=== PATIENT | female | born 1980 | race African-American/Black ===

== ENCOUNTER 2017-01-27 14:17 | Emergency (ER) | payer MEDICAID ==
[~2017-01-27] VITALS: Ht 165.1 cm; Wt 74.8 kg
[~2017-01-27 14:17] MED LIST: AZITHROMYCIN250 MG ORAL; BENADRYL25 MG ORAL; CLINDAMYCIN HC300 MG ORAL; IBUPROFEN600 MG ORAL; IBUPROFEN600 MG PO; IBUPROFEN800 MG PO; KEFLEX500 MG ORAL; NKM; NORCO 5-325 TA1 EACH ORAL; PEPCID20 MG ORAL; PREDNISONE20 MG ORAL; PROMETHAZINE-C118 M1 ORAL; ROBAXIN-750750 MG PO; VALIUM2 MG PO
[2017-01-27 14:35] VITALS: BP 111/72
[2017-01-27] MEDS ORDERED: TRAMADOL HCL50 MG ORAL (15:29)
[2017-01-27 15:31] VITALS: BP 111/72
--- NOTE | 2017-01-27 21:13 | Emergency Room Report ---
History of Present Illness General Chief Complaint: Pain Source: Patient Present Illness [facility] The patient is a 28-year-old female presenting with left thumb pain. The patient states that she injured that thumb 2 weeks prior while opening the back of her truck at work. The patient states that the thumb over extended. She was initially seen at another facility after the injury but no x-rays were done and the patient states pain has continued. It is now an 8/10 dull ache and does not radiate. She denies previous injury to the thumb. Pain worse with movement. She denies numbness or tingling. She denies any other symptoms including rash, fever, chills Allergies: Coded Allergies: No Known Allergies (Unverified , 06/29/15) Patient History Past Medical History: see triage record Pertinent Family History: none Last Menstrual Period: 01/15/17 Now: No Reviewed Nursing Documentation: PMH: Agreed, PSxH: Agreed Nursing Documentation-PMH Past Medical History: No Stated History Hx Cardiac Problems: No Hx Neurological Problems: No Review of Systems All Other Systems: negative except mentioned in HPI Physical Exam Vital Signs Date Time Temp Pulse Resp B/P Pulse Ox O2 Delivery O2 Flow Rate FiO2 01/27/17 14:32 98.2 89 16 111/72 100 Room Air Sp02 EP Interpretation: reviewed, normal General Appearance: no apparent distress, alert, GCS 15, non-toxic Head: normocephalic, atraumatic Eyes: bilateral eye PERRL, bilateral eye normal inspection ENT: hearing grossly normal, normal pharynx, no angioedema, normal voice Musculoskeletal: normal inspection, decreased range of motion, tender - TTP over the L 1st MCPJ Neurologic: alert, oriented x3, responsive, motor strength/tone normal, sensory intact, speech normal Psychiatric: judgement/insight normal, memory normal, mood/affect normal, no suicidal/homicidal ideation Skin: normal color, no rash, warm/dry, well hydrated Lymphatic: no adenopathy Procedures Splinting Splinting : Consent: Verbal Location: L arm Pre-Made Type: velcro Splint: thumb spica Pre-Proc Neuro Vasc Exam: normal Post-Proc Neuro Vasc Exam: normal Patient Tolerated: Well Complications: None Medical Decision Making PA Attestation Dr. Sanabria is my supervising physician. Patient management was discussed with my supervising physician Diagnostic Impression: Primary Impression: Left thumb sprain Qualified Codes: S63.642A - Sprain of metacarpophalangeal joint of left thumb , initial encounter ER Course The patient is a 28-year-old female presenting with left thumb pain. Ddx considered include but not limited to sprain/strain, fracture, contusion Physical exam: No apparent distress Left arm: There is tenderness to palpation over the base of the left first MCP joint. Limited active range of motion due to pain. No obvious deformity. No edema X-ray of the wrist is unremarkable Thumb spica splint is placed The patient will followup with PMD and possibly workers compensation. RICE instructions given. ER precautions are given Other X-Ray Diagnostic Results Other X-Ray Diagnostic Results : X-Ray Ordered: L wrist Date: January 27, 2017 EP Interpretation: Yes Findings: no fractures, no dislocation, no soft tissue swelling Number of Views: 3 PA Scribe Text I am acting as scribe for my supervising physician. My supervising physician's interpretation of the L wrist xrays are there are no fractures, dislocations or soft tissue swelling. Last Vital Signs Date Time Temp Pulse Resp B/P Pulse Ox O2 Delivery O2 Flow Rate FiO2 01/27/17 15:31 98.2 89 16 111/72 100 Room Air Status: improved Disposition: HOME, SELF-CARE Condition: Improved Scripts Tramadol Hcl* (ULTRAM*) 50 Mg Tablet 50 MG ORAL Q6H Y for For Pain, #10 TAB 0 Refills Prov: SHELBIE BLOCK 01/27/17 Patient Instructions: Thumb Sprain Additional Instructions: I discussed my findings with the patient. All questions and concerns have been answered. Treatment and medication compliance have been addressed. I advised the patient that they need to follow up with PMD in 3-5 days. Return to ED if pain remains or worsens, numbness or tingling occurs, new rash is noticed, fever is noticed, or if needed for any reason. Patient verbalized understanding of discharge instructions. SHELBIE BLOCK January 27, 2017 21:13
--- NOTE | 2017-01-30 08:49 | Diagnostic Imaging Report ---
Indications: Left wrist pain Technique: 3 views left wrist Findings: Comparison: None. No fracture, dislocation, lytic destruction, periosteal reaction, surrounding soft tissue swelling, or other acute changes are demonstrated. No deformity, alignment abnormality, arthritic change, soft tissue calcification, or other chronic changes are demonstrated. IMPRESSION: Negative left wrist series.
== END 2017-01-27 15:41 | disposition home or self-care (01) ==
LOC: EMR 15:04
DX: S63.602A Unspecified sprain of left thumb, initial encounter (principal); X58.XXXA Exposure to other specified factors, initial encounter; Y93.9 Activity, unspecified; Y99.9 Unspecified external cause status
CPT/HCPCS: 29260; 29280; 99283

== ENCOUNTER 2017-04-02 21:10 | Emergency (ER) | payer MEDICAID ==
[~2017-04-02] VITALS: Ht 167.6 cm; Wt 59.0 kg
[~2017-04-02 21:10] MED LIST changes: +TRAMADOL HCL50 MG ORAL
[2017-04-02] MEDS ORDERED: TYLENOL EXTRA500 MG ORAL (22:09)
[2017-04-02] MEDS ORDERED: Bacitracin Oint UD TOPIC ONE (22:15)
[2017-04-02 22:18] VITALS: BP 108/76
--- NOTE | 2017-04-03 00:56 | Emergency Room Report ---
History of Present Illness General Chief Complaint: Lower Extremity Injury Source: Patient Present Illness HPI 36-year-old female presents ED complaining of right foot pain. States that tonight a drawer front fell from the counter height in hit her in the foot. Denies any other injuries. Notes pain and swelling to the right foot. 02/25. Throbbing. Nonradiating. Unable to bear weight. No other aggravating relieving factors. Denies any other associated symptoms. Allergies: Coded Allergies: No Known Allergies (Unverified , 06/29/15) Patient History Past Medical History: none Past Surgical History: none Pertinent Family History: none Social History: Denies: alcohol use, drug use, smoking Now: Yes Immunizations: UTD Reviewed Nursing Documentation: PMH: Agreed, PSxH: Agreed Nursing Documentation-PMH Hx Cardiac Problems: No Hx Hypertension: No Hx Pacemaker: No Hx Asthma: No Hx COPD: No Hx Diabetes: No Hx Neurological Problems: No Hx Cerebrovascular Accident: No Hx Seizures: No Review of Systems All Other Systems: negative except mentioned in HPI Physical Exam Vital Signs Date Time Temp Pulse Resp B/P Pulse Ox O2 Delivery O2 Flow Rate FiO2 04/02/17 21:25 98.1 78 16 108/76 98 Room Air Sp02 EP Interpretation: reviewed, normal General Appearance: no apparent distress, alert, GCS 15, non-toxic Head: normocephalic Eyes: bilateral eye PERRL, bilateral eye normal inspection ENT: normal ENT inspection Neck: normal inspection Respiratory: normal inspection Cardiovascular #1: normal inspection Gastrointestinal: normal inspection Rectal: deferred Genitourinary: no CVA tenderness Musculoskeletal: tender - swelling to dorsum R foot. no deformity Neurologic: alert, oriented x3, responsive, motor strength/tone normal, sensory intact, speech normal Psychiatric: normal inspection Skin: normal inspection Lymphatic: normal inspection Procedures Splinting Splinting : Consent: Verbal Pre-Made Type: DENITA wrap - crutches Pre-Proc Neuro Vasc Exam: normal Post-Proc Neuro Vasc Exam: normal Patient Tolerated: Well Complications: None Medical Decision Making Diagnostic Impression: Primary Impression: Foot contusion Qualified Codes: S90.31XA - Contusion of right foot, initial encounter ER Course Hospital Course 36-year-old F presents to ED complaining of R foot pain s/p object fell on foot Differential diagnoses include: Fracture, dislocation, sprain, contusion Clinical course Patient placed on stretcher. After initial history and physical, I ordered xrays of R foot Patient states she is . Patient will be shielded Xrays prelim read shows no acute fracture/dislocation. placed in denita wrap, given crutches Diagnosis - foot contusion Stable and discharged to home with prescription for Tylenol. apply ice, keep elevated. weight bear as tolerated. Followup with PMD. Return to ED if symptoms recur or worsen Other X-Ray Diagnostic Results Other X-Ray Diagnostic Results : X-Ray ordered: R foot # of Views/Limited Vs Complete: 3 View Indication: Pain EP Interpretation: Yes Interpretation: no dislocation, no soft tissue swelling, no fractures Impression: No acute disease Interpreting ER Provider: Electronically signed by Diogo Hollis MD Last Vital Signs Date Time Temp Pulse Resp B/P Pulse Ox O2 Delivery O2 Flow Rate FiO2 04/02/17 22:18 98.1 16 108/76 98 Room Air 04/02/17 21:25 78 Status: improved Disposition: HOME, SELF-CARE Condition: Improved Scripts Acetaminophen* (TYLENOL EXTRA STRENGTH*) 500 Mg Tablet 500 MG ORAL Q8H Y for Prn Headache/Temp > 101, #30 TAB 0 Refills Prov: DIOGO HOLLIS M.D. 04/02/17 Referrals: LO SHORT (PCP) Departure Forms: Return to Work Return to Work Date: Apr 03, 2017 Work Restrictions: No Prolonged Standing Patient Instructions: Foot Contusion DIOGO HOLLIS M.D. Apr 03, 2017 00:56
--- NOTE | 2017-04-03 11:55 | Diagnostic Imaging Report ---
Indication: Pain Comparison: None Findings: 3 views of the right foot were obtained. No acute fractures, malalignment, erosions or periostitis are identified. Bone mineralization is within normal limits. Soft tissues are unremarkable. Impression: Negative examination of the right foot.
== END 2017-04-02 22:18 | disposition home or self-care (01) ==
LOC: EMR 21:39
DX: S90.31XA Contusion of right foot, initial encounter (principal); W20.8XXA Other cause of strike by thrown, projected or falling object, initial encounter; Y92.9 Unspecified place or not applicable
CPT/HCPCS: 29540; 99283

== ENCOUNTER 2017-04-04 15:53 | Emergency (ER) | payer MEDICAID ==
[~2017-04-04] VITALS: Ht 165.1 cm; Wt 74.8 kg
[~2017-04-04 15:53] MED LIST changes: +TYLENOL EXTRA500 MG ORAL
[2017-04-04 16:20] VITALS: BP 118/80
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
[2017-04-04 18:15] VITALS: BP 117/70
--- NOTE | 2017-04-05 13:32 | Diagnostic Imaging Report ---
Indication: TRAUMA, pelvic pain, positive test Technique: Transabdominal and transvaginal images Comparison: 03/24/2015 Findings: Uterus measures 5.9 cm in length by 4 cm AP. Within the endometrium there is a tiny fluid collection. Small myometrial fibroids are noted. There is free fluid in the cul-de-sac. Right ovary measures 4.5 cm in length, contains a 2.1 cm hemorrhagic cyst. A second 2.1 cm this is also noted. Left ovary measures 4.4 cm in length. It demonstrates a partially collapsed cyst with low-level internal echoes. No adnexal mass demonstrated. Impression: Tiny fluid collection within the endometrium. Nonspecific in appearance, could represent a gestational sac but this is far from definitive, and no definite intrauterine is demonstrated. Findings could indicate very early , nonviable , or ectopic . Correlation with serial beta hCGs is recommended. Consider followup sonography as indicated Free cul-de-sac fluid, presumably physiologic Bilateral hemorrhagic ovarian cysts or follicles
== END 2017-04-04 18:15 | disposition left against medical advice (07) ==
LOC: EMR 17:07
DX: O26.891 Other specified pregnancy related conditions, first trimester (principal); Z3A.01 Less than 8 weeks gestation of pregnancy; V49.9XXA Car occupant (driver) (passenger) injured in unspecified traffic accident, initial encounter; Y92.410 Unspecified street and highway as the place of occurrence of the external cause
CPT/HCPCS: 36415; 76830; 76856; 81025; 84702; 99283

== ENCOUNTER 2017-09-27 16:22 | Emergency (ER) | payer MEDICAID ==
[~2017-09-27] VITALS: Ht 162.6 cm; Wt 73.9 kg
[2017-09-27 16:45] VITALS: BP 131/74
[2017-09-27] MEDS ORDERED: PROMETHAZINE-C118 M1 ORAL (17:12)
[2017-09-27] MEDS ORDERED: AMOXICILLIN500 MG ORAL (17:12)
[2017-09-27 17:15] VITALS: BP 131/74
--- NOTE | 2017-09-28 12:56 | Emergency Room Report ---
History of Present Illness General Chief Complaint: Flu Like Symptoms Source: Patient Present Illness HPI 37-year-old female presents ED for evaluation. States the last 10 days she's been experiencing bodyaches, cough, chills. Cough is productive with greenish phlegm. Denies fever. Afebrile in triage. Notes body, 5-10, nonradiating. Denies sick contacts or recent travel. States the cough is keeping her up at night. No other aggravating relieving factors. Denies any other associated symptoms Allergies: Coded Allergies: No Known Allergies (Unverified , 06/29/15) Patient History Past Medical History: none Past Surgical History: none Pertinent Family History: none Social History: Denies: smoking, alcohol use, drug use Now: No Immunizations: UTD Reviewed Nursing Documentation: PMH: Agreed, PSxH: Agreed Nursing Documentation-PMH Hx Cardiac Problems: No Hx Hypertension: No Hx Pacemaker: No Hx Asthma: No Hx COPD: No Hx Diabetes: No Hx Neurological Problems: No Hx Cerebrovascular Accident: No Hx Seizures: No Review of Systems All Other Systems: negative except mentioned in HPI Physical Exam Vital Signs Date Time Temp Pulse Resp B/P (MAP) Pulse Ox O2 Delivery O2 Flow Rate FiO2 09/27/17 16:45 99.0 109 20 131/74 98 Room Air 09/27/17 17:15 98 Sp02 EP Interpretation: reviewed, normal General Appearance: no apparent distress, alert, GCS 15, non-toxic Head: normocephalic, atraumatic Eyes: bilateral eye normal inspection, bilateral eye PERRL ENT: hearing grossly normal, normal pharynx, no angioedema, normal voice Neck: full range of motion, supple/symm/no masses Respiratory: chest non-tender, lungs clear, normal breath sounds, speaking full sentences Cardiovascular #1: regular rate, rhythm, no edema Cardiovascular #2: 2+ carotid (R), 2+ carotid (L), 2+ radial (R), 2+ radial (L) , 2+ dorsalis pedis (R), 2+ dorsalis pedis (L) Gastrointestinal: normal bowel sounds, non tender, soft, non-distended, no guarding, no rebound Rectal: deferred Genitourinary: normal inspection, no CVA tenderness Musculoskeletal: back normal, gait/station normal, normal range of motion, non- tender Neurologic: alert, oriented x3, responsive, motor strength/tone normal, sensory intact, speech normal Psychiatric: judgement/insight normal, memory normal, mood/affect normal, no suicidal/homicidal ideation Reflexes: 3+ bicep (R), 3+ bicep (L), 3+ tricep (R), 3+ tricep (L), 3+ knee (R) , 3+ knee (L) Skin: normal color, no rash, warm/dry, well hydrated Lymphatic: no adenopathy Medical Decision Making Diagnostic Impression: Primary Impression: Atypical pneumonia ER Course Hospital Course 37-year-old female presents to ED complaining of cough, bodyaches Differential diagnoses include: URI, pharyngitis, otitis media, asthma Clinical course Patient placed on stretcher. After initial history, physical exam reveals a female in no acute distress. Bilateral TM unremarkable. No pharyngeal erythema. No tonsillar exudates. No lymphadenopathy. lungs clear. abdomen soft. Presentation consistent with atypical pneumonia. We'll prescribe antibiotics and cough medication Diagnosis - atypical pneumonia Stable and discharged home with Rx Amoxicillin, Promethazine/codeine. Instructed to followup with PMD. Return to ED if symptoms recur or worsen Last Vital Signs Date Time Temp Pulse Resp B/P (MAP) Pulse Ox O2 Delivery O2 Flow Rate FiO2 09/27/17 17:15 99.0 20 131/74 98 Room Air 09/27/17 17:15 78 98 Status: improved Disposition: HOME, SELF-CARE Condition: Stable Scripts Codeine/Promethazine Hcl* (PROMETHAZINE-CODEINE SYRUP*) 118 Ml Syrup 5 ML ORAL Q6H Y for For Cough, #118 ML 0 Refills Prov: SARA BHAT M.D. 09/27/17 Amoxicillin* (AMOXIL*) 500 Mg Capsule 500 MG ORAL THREE TIMES A DAY, #21 CAP Prov: SARA BHAT M.D. 09/27/17 Referrals: [facility],REFERRING (PCP) Patient Instructions: Community-Acquired Pneumonia, Adult, [id number] SARA BHAT M.D. Sep 28, 2017 12:56
== END 2017-09-27 17:20 | disposition home or self-care (01) ==
LOC: EMR 17:05
DX: J18.9 Pneumonia, unspecified organism (principal)
CPT/HCPCS: 99283

== ENCOUNTER 2018-01-14 15:42 | Emergency (ER) | payer MEDICAID ==
[~2018-01-14] VITALS: Ht 165.1 cm; Wt 75.3 kg
[~2018-01-14 15:42] MED LIST changes: +AMOXICILLIN500 MG ORAL
[2018-01-14 16:39] LABS: APPEARANCE,URINE SLIGHTLY CLOUDY; BILIRUBIN, URINE NEGATIVE (NEGATIVE); COLOR,URINE AMBER; GLUCOSE, URINE (UA) NEGATIVE (NEGATIVE); KETONES,URINE NEGATIVE (NEGATIVE); LEUKOCYTE ESTERASE ,URINE 1+ (NEGATIVE); NITRITE,URINE POSITIVE (NEGATIVE); PH,URINE 6 (4.5-8.0); PROTEIN,URINE 1+ (NEGATIVE); UROBILINOGEN,URINE NORMAL MG/DL (0.0-1.0)
[2018-01-14 17:38] LABS: EOSINOPHILS % (AUTO) 0.7 % (0.0-3.0); HEMATOCRIT 38.9 % (37.0-47.0); HEMOGLOBIN 12.9 G/DL (12.0-16.0); MEAN CORPUSCULAR VOLUME 97 FL (80-99); MONOCYTES % (AUTO) 6.2 % (1.0-10.0); PLATELET COUNT 275 K/UL (150-450); RED BLOOD COUNT 4.01 M/UL (4.20-5.40); RED CELL DISTRIBUTION WIDTH 11.3 % (11.6-14.8); WHITE BLOOD COUNT 7.9 K/UL (4.8-10.8)
[2018-01-14 18:01] LABS: INR 0.9 (0.9-1.1)
[2018-01-14] MEDS ORDERED: Cephalexin 500mg cap ORAL ONE (18:15)
--- NOTE | 2018-01-14 18:43 | Emergency Room Report ---
History of Present Illness General Chief Complaint: Female Urogenital Problems Source: Patient (SHELBIE BLOCK) Present Illness HPI The patient is a 37-year-old female presenting for mid lower abdominal pain as well as vaginal bleeding. Last normal menstrual period was 12/27/17. She has had light vaginal spotting for the past one week. Abdominal pain described as a 3 out of 10 dull ache and does not radiate. She has had a tubal approximately 20 years prior. She has had 2 medical abortions and 2 miscarriages. She denies other symptoms including nausea, vomiting, fever, chills, back pain (SHELBIE BLOCK) Allergies: Coded Allergies: No Known Allergies (Unverified , 06/29/15) Patient History Past Medical History: see triage record Pertinent Family History: none Last Menstrual Period: 12/27/17 Now: Yes : 6 Para: 2 Reviewed Nursing Documentation: PMH: Agreed; PSxH: Agreed (SHELBIE BLOCK) Nursing Documentation-PMH Past Medical History: No History, Except For Hx Cardiac Problems: No Hx Hypertension: No Hx Pacemaker: No Hx Asthma: No Hx COPD: No Hx Diabetes: No Hx Neurological Problems: No Hx Cerebrovascular Accident: No Hx Seizures: No (SHELBIE BLOCK) Review of Systems All Other Systems: negative except mentioned in HPI (SHELBIE BLOCK) Physical Exam Vital Signs Date Time Temp Pulse Resp B/P (MAP) Pulse Ox O2 Delivery O2 Flow Rate FiO2 01/14/18 15:52 98.2 93 19 123/76 96 Room Air 98.2 Sp02 EP Interpretation: reviewed, normal General Appearance: no apparent distress, alert, GCS 15, non-toxic Head: normocephalic, atraumatic Eyes: bilateral eye normal inspection, bilateral eye PERRL Respiratory: chest non-tender, lungs clear, normal breath sounds, speaking full sentences Cardiovascular #1: regular rate, rhythm, no edema Gastrointestinal: normal bowel sounds, non tender, soft, non-distended, no guarding, no rebound Genitourinary: normal inspection, no CVA tenderness Musculoskeletal: back normal, gait/station normal, normal range of motion, non- tender Neurologic: alert, oriented x3, responsive, motor strength/tone normal, sensory intact, speech normal Psychiatric: judgement/insight normal, memory normal, mood/affect normal, no suicidal/homicidal ideation Skin: normal color, no rash, warm/dry, well hydrated (SHELBIE BLOCK) Medical Decision Making PA Attestation Dr. Voss is my supervising physician. Patient management was discussed with my supervising physician (SHELBIE BLOCK) Diagnostic Impression: Primary Impression: Threatened miscarriage Additional Impression: UTI (urinary tract infection) Qualified Codes: N30.01 - Acute cystitis with hematuria ER Course The patient is a 37-year-old female presenting for mid lower abdominal pain as well as vaginal bleeding Differential diagnoses considered include but not limited to Early , threatened , incomplete , complete , ectopic , hemorrhagic cyst, UTI PE: Afebrile. NAD Abd is soft. Non distended. Non tender. BS normal No CVA tenderness Labs: CBC unremarkable. No leukocytosis BMP unremarkable UA consistent with UTI Beta-hCG 1,442 US not available at this time. Pt will return in 2 days for repeat of beta-hCG She will return sooner if she experiences fever, worsening abd pain, back pain, SOB, or for any other reason SHe is given prescription for Keflex for UTI and will contact her OBGYN Laboratory Tests Test 01/14/18 16:00 01/14/18 17:22 Urine Color Terri Urine Appearance Slightly cloudy Urine pH 6 (4.5-8.0) Urine Specific [place] 1.020 (1.005-1.035) Urine Protein 1+ (NEGATIVE) H Urine Glucose (UA) Negative (NEGATIVE) Urine Ketones Negative (NEGATIVE) Urine Occult Blood 5+ (NEGATIVE) H Urine Nitrite Positive (NEGATIVE) H Urine Bilirubin Negative (NEGATIVE) Urine Ictotest Negative Urine Urobilinogen Normal MG/DL (0.0-1.0) Urine Leukocyte Esterase 1+ (NEGATIVE) H Urine RBC 5-10 /HPF (0 - 2) H Urine WBC 15-20 /HPF (0 - 2) H Urine Squamous Epithelial Cells Moderate /LPF (NONE/OCC) H Urine Bacteria Moderate /HPF (NONE) H Urine HCG, Qualitative Positive (NEGATIVE) White Blood Count 7.9 K/UL (4.8-10.8) Red Blood Count 4.01 M/UL (4.20-5.40) L Hemoglobin 12.9 G/DL (12.0-16.0) Hematocrit 38.9 % (37.0-47.0) Mean Corpuscular Volume 97 FL (80-99) Mean Corpuscular Hemoglobin 32.2 PG (27.0-31.0) H Mean Corpuscular Hemoglobin Concent 33.2 G/DL (32.0-36.0) Red Cell Distribution Width 11.3 % (11.6-14.8) L Platelet Count 275 K/UL (150-450) Mean Platelet Volume 7.0 FL (6.5-10.1) Neutrophils (%) (Auto) 57.0 % (45.0-75.0) Lymphocytes (%) (Auto) 34.0 % (20.0-45.0) Monocytes (%) (Auto) 6.2 % (1.0-10.0) Eosinophils (%) (Auto) 0.7 % (0.0-3.0) Basophils (%) (Auto) 2.0 % (0.0-2.0) Prothrombin Time 9.5 SEC (9.30-11.50) Prothrombin Time INR 0.9 (0.9-1.1) PTT 32 SEC (23-33) Sodium Level 138 MMOL/L (136-145) Potassium Level 3.6 MMOL/L (3.5-5.1) Chloride Level 103 MMOL/L (98-107) Carbon Dioxide Level 24 MMOL/L (21-32) Anion Gap 11 mmol/L (5-15) Blood Urea Nitrogen 14 mg/dL (7-18) Creatinine 0.8 MG/DL (0.55-1.30) Estimate Glomerular Filtration Rate > 60 mL/min (>60) Glucose Level 95 MG/DL (74-106) Calcium Level 9.0 MG/DL (8.5-10.1) Human Chorionic Gonadotropin, Quant 1442 mIU/mL (1-6) H Lab Results Impression CBC unremarkable. No leukocytosis BMP unremarkable UA consistent with UTI Beta-hCG 1,442 (SHELBIE BLOCK.Pam) ER Course Please see above note. Initially plan for ultrasound. Unavailable. Patient examined by me. She denies pain. Ultrasound cancelled. Discussed assessment and treatment plan with patient and sig other. Agree with treatment plan. Patient stable for outpatient observation and treatment. (Adrian Vsos M.D.) Last Vital Signs Date Time Temp Pulse Resp B/P (MAP) Pulse Ox O2 Delivery O2 Flow Rate FiO2 01/14/18 15:52 98.2 93 19 123/76 96 Room Air 98.2 Status: improved (SHELBIE BLOCK P.A.) Disposition: HOME, SELF-CARE Condition: Improved Scripts Cephalexin* (KEFLEX*) 500 Mg Capsule 500 MG ORAL EVERY 12 HOURS, #14 CAP 0 Refills Prov: SHELBIE BLOCK 01/14/18 Referrals: [facility],REFERRING (PCP) SHELBIE BLOCK Jan 14, 2018 18:43 Adrian Voss M.D. January 17, 2018 16:07
[2018-01-14 19:12] VITALS: BP 122/72
[2018-01-14 19:56] LABS: ANION GAP 11 mmol/L (5-15); BLOOD UREA NITROGEN 14 mg/dL (7-18); CARBON DIOXIDE 24 MMOL/L (21-32); CHLORIDE 103 MMOL/L (98-107); CREATININE 0.8 MG/DL (0.55-1.30); POTASSIUM 3.6 MMOL/L (3.5-5.1); SODIUM 138 MMOL/L (136-145)
[2018-01-14] MEDS ORDERED: CEPHALEXIN500 MG ORAL (21:34)
[2018-01-14 22:29] VITALS: BP 128/74
[2018-01-14 22:30] VITALS: BP 128/74
--- NOTE | 2018-01-17 08:25 | Emergency Room Report ---
History of Present Illness General Chief Complaint: Female Urogenital Problems Source: Patient Present Illness Allergies: Coded Allergies: No Known Allergies (Unverified , 06/29/15) Patient History Last Menstrual Period: 12/27/17 : 6 Para: 2 Nursing Documentation-[facility] Past Medical History: No History, Except For Hx Cardiac Problems: No Hx Hypertension: No Hx Pacemaker: No Hx Asthma: No Hx COPD: No Hx Diabetes: No Hx Neurological Problems: No Hx Cerebrovascular Accident: No Hx Seizures: No Physical Exam Vital Signs Date Time Temp Pulse Resp B/P (MAP) Pulse Ox O2 Delivery O2 Flow Rate FiO2 01/14/18 15:52 98.2 93 19 123/76 96 Room Air 98.2 Medical Decision Making Diagnostic Impression: Primary Impression: Threatened miscarriage Patient urine result shows positive for Escherichia coli. It is resistant to Keflex. I called the patient to check up on her and she states that she's not feeling well. Therefore I informed the patient to come back in emergency department for repeat evaluation and possible abdominal ultrasound. Patient is states that she is . And that ultrasound was not performed last time in our emergency department because the ultrasound equipment was not. Patient states that she'll return to emergency department as possible. Last Vital Signs Date Time Temp Pulse Resp B/P (MAP) Pulse Ox O2 Delivery O2 Flow Rate FiO2 01/14/18 22:30 98.2 70 20 128/74 100 Room Air 98.2 Disposition: HOME, SELF-CARE Condition: Improved Scripts Cephalexin* (KEFLEX*) 500 Mg Capsule 500 MG ORAL EVERY 12 HOURS, #14 CAP 0 Refills Prov: SHELBIE BLOCK 01/14/18 Departure Forms: Return to Work Return to Work in (Days): 1 Return to Work Date: Jan 15, 2018 Work Restrictions: No Heavy Lifting, No Prolonged Standing, Desk Work Only Patient Instructions: Threatened Miscarriage Additional Instructions: I discussed my findings with the patient. All questions and concerns have been answered. The patient needs to F/U with her [employer]DER for further evaluation. Return to ER in 2 days for repeat of Beta hcg. Return sooner if you notice other symptoms such as increased pain or fever DELILAH PORTILLO M.D. January 17, 2018 08:25
== END 2018-01-14 22:30 | disposition home or self-care (01) ==
LOC: EMR 16:25
DX: O20.0 Threatened abortion (principal); Z3A.00 Weeks of gestation of pregnancy not specified
CPT/HCPCS: 36415; 80048; 81003; 81025; 84702; 85025; 85610; 85730; 86850; 86900; 86901; 87086; 87181; 99283

== ENCOUNTER 2018-01-17 12:23 | Emergency (ER) | payer MEDICAID ==
[~2018-01-17] VITALS: Ht 165.1 cm; Wt 74.4 kg
[~2018-01-17 12:23] MED LIST changes: +CEPHALEXIN500 MG ORAL
[2018-01-17] MEDS ORDERED: Augmentin 875mg Tab ORAL ONE (12:45)
[2018-01-17 13:39] LABS: BASOPHILS % (AUTO) 2.1 % (0.0-2.0); EOSINOPHILS % (AUTO) 0.7 % (0.0-3.0); HEMATOCRIT 37.6 % (37.0-47.0); HEMOGLOBIN 12.9 G/DL (12.0-16.0); LYMPHOCYTES % (AUTO) 31.5 % (20.0-45.0); MEAN CORPUSCULAR VOLUME 98 FL (80-99); MONOCYTES % (AUTO) 7.3 % (1.0-10.0); NEUTROPHILS % (AUTO) 58.4 % (45.0-75.0); PLATELET COUNT 278 K/UL (150-450); RED BLOOD COUNT 3.84 M/UL (4.20-5.40); RED CELL DISTRIBUTION WIDTH 11.4 % (11.6-14.8); WHITE BLOOD COUNT 6.4 K/UL (4.8-10.8)
[2018-01-17 13:47] LABS: ANION GAP 8 mmol/L (5-15); BLOOD UREA NITROGEN 9 mg/dL (7-18); CALCIUM 9.1 MG/DL (8.5-10.1); CARBON DIOXIDE 28 MMOL/L (21-32); CHLORIDE 103 MMOL/L (98-107); CREATININE 0.7 MG/DL (0.55-1.30); POTASSIUM 3.7 MMOL/L (3.5-5.1); SODIUM 139 MMOL/L (136-145)
[2018-01-17 13:57] LABS: APPEARANCE,URINE CLEAR; BILIRUBIN, URINE NEGATIVE (NEGATIVE); GLUCOSE, URINE (UA) NEGATIVE (NEGATIVE); KETONES,URINE 1+ (NEGATIVE); LEUKOCYTE ESTERASE ,URINE 1+ (NEGATIVE); NITRITE,URINE NEGATIVE (NEGATIVE); PH,URINE 6 (4.5-8.0); PROTEIN,URINE 2+ (NEGATIVE); UROBILINOGEN,URINE 4 MG/DL (0.0-1.0)
[2018-01-17 14:00] LABS: COLOR,URINE YELLOW
--- NOTE | 2018-01-17 14:28 | Diagnostic Imaging Report ---
Indication: Vaginal spotting. Patient . Technique: Grayscale and duplex Doppler imaging of the pelvis performed utilizing a transabdominal scan and endovaginal scan. Comparison: None Findings: There is a tiny cystic focus within the central part of the uterus, nonspecific. There is no yolk sac or pole and the cyst is too small to characterize or date. There is no adnexal mass. There is trace free fluid identified. The ovaries are demonstrated and show dopplerable blood flow. The endometrium is about 13 mm in thickness. The right ovary is 4.1 x 3.8 x 2.4 cm. Left ovary 3.6 x 2.8 x 2.0 cm. There are multiple fibroids noted within the uterus which measures 7.6 x 5.4 x 3.2 cm. IMPRESSION: Nonspecific tiny cystic structure in the central part of the uterus. Considerations include early intrauterine , remnant of spontaneous , nonpregnancy related cyst. Correlation with quantitative beta hCG recommended. Follow-up suggested. Uterine fibroids Unremarkable ovaries
--- NOTE | 2018-01-17 15:29 | Emergency Room Report ---
History of Present Illness General Chief Complaint: Complications Present Illness HPI 37-year-old female presents to the emergency department complaining of continued vaginal bleeding in the mouth that she uses to pantiliners per day 3 weeks. Patient reports positive test. Patient reports previous visit to the emergency department on 429 and was told to return because ultrasound was unavailable at the time. 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 Patient reports he out of 10 in severity pain at the moment however she states she gets intermittent 6 out of 10 in severity lower uterine cramping sensation. Patient states that her last regular menstrual period was November. Patient states that on December 27 she began spotting but it was not like her normal menstruation. Patient reports she is , 3 prior miscarriages, 2 previous C-sections and a D & C. Denies nausea, vomiting, fevers, chills, purulent vaginal discharge, abdominal trauma, dizziness, lightheadedness/syncope , or increased fatigue. (Chelsea Sesay P.A.) Allergies: Coded Allergies: No Known Allergies (Unverified , 06/29/15) Patient History Past Medical History: see triage record Past Surgical History: none Pertinent Family History: none Last Menstrual Period: 12/2017 Now: Yes : 7 Para: 2 Reviewed Nursing Documentation: PMH: Agreed; PSxH: Agreed (Chelsea Sesay PShannon) Nursing Documentation-PMH Hx Cardiac Problems: No Hx Hypertension: No Hx Pacemaker: No Hx Asthma: No Hx COPD: No Hx Diabetes: No Hx Neurological Problems: No Hx Cerebrovascular Accident: No Hx Seizures: No (Chelsea Sesay P.AChristian) Review of Systems All Other Systems: negative except mentioned in HPI (Chelsea Sesay P.A.) Physical Exam Vital Signs Date Time Temp Pulse Resp B/P (MAP) Pulse Ox O2 Delivery O2 Flow Rate FiO2 01/17/18 12:27 98.3 103 20 105/66 96 Room Air 98.2 Sp02 EP Interpretation: reviewed, normal General Appearance: no apparent distress, alert, GCS 15, non-toxic Head: normocephalic, atraumatic ENT: hearing grossly normal, normal voice Neck: full range of motion Respiratory: lungs clear, normal breath sounds, speaking full sentences Cardiovascular #1: regular rate, rhythm Gastrointestinal: normal bowel sounds, non tender, soft, non-distended, tenderness Rectal: deferred Genitourinary: normal inspection, no CVA tenderness, os closed, other - Cervical Os is closed, blood in the vaginal vault, dark red. Musculoskeletal: back normal, gait/station normal, normal range of motion, non- tender Neurologic: alert, oriented x3, responsive, motor strength/tone normal, sensory intact, speech normal, grossly normal Psychiatric: judgement/insight normal Skin: normal color, no rash, warm/dry, well hydrated (Chelsea Sesay) Medical Decision Making PA Attestation Dr. Trejo is my supervising Physician whom patient management has been discussed with. (Chelsea Sesay) Diagnostic Impression: Primary Impression: Threatened miscarriage ER Course 37-year-old female presents to the emergency department complaining of continued vaginal bleeding in the mouth that she uses to pantiliners per day 3 weeks. Patient reports positive test. Patient reports previous visit to the emergency department on 429 and was told to return because ultrasound was unavailable at the time. 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 Patient reports he out of 10 in severity pain at the moment however she states she gets intermittent 6 out of 10 in severity lower uterine cramping sensation. Patient states that her last regular menstrual period was November. Patient states that on December 27 she began spotting but it was not like her normal menstruation. Patient reports she is , 3 prior miscarriages, 2 previous C-sections and a D & C. Denies nausea, vomiting, fevers, chills, purulent vaginal discharge, abdominal trauma, dizziness, lightheadedness/syncope , or increased fatigue. Ddx considered but are not limited to: Fibroid, ectopic , Fibroid, Spontaneous , Vital signs: are WNL, pt. is afebrile Pelvic Exam: Cervical Os is closed, blood in the vaginal vault, dark red. H&PE are most consistent with: threatened miscarriage ORDERS: -Urine hcg- Positive -serum Hcg Quant: 1385 .. was 1442 on 01/14 - Blood/RH type and screen- O -Positive ( obtained at last visit on 01/14) -CBC and BMP: Unremarkable -UA: No bacteria, moderate squamous cells, hematuria noted. This is most consistent with contamination. Review of patient's previous urinalysis on 429 shows patient was nitrite positive she was prescribed Macrobid which laboratory testing showed resistance to. Currently patient is not having urinary symptoms. -- Discussed with patient to discontinue Macrobid a no presence of bacteria in the urine, she is asymptomatic and previous culture and sensitivity report shows resistance. -Pelvic US complete- "Nonspecific tiny cystic structure in the central part of the uterus. Considerations include early intrauterine , remnant of spontaneous , non- related cyst. Correlation with quantitative beta hCG recommended. Follow-up suggested, uterine fibroids unremarkable ovaries." -- Per official radiology report- Please see report for specific details. ED INTERVENTIONS: - Reglan -Augmentin initially ordered prior to UA results, based off of C&S testing from previous UA on 01/14 -d/w patient need for urgent [employer] follow-up within 48 hours to reassess beta Quant as well as to repeat ultrasound. Discussed with patient that rest and that due to decline in beta hCG most consistent with miscarriage however she needs to continue close follow-up. Discussed the patient to return promptly to the emergency department with worsening or new symptoms such as fevers, chills, increased severe abdominal pain. -Patient states that she has previous [employer] who handled her most recent miscarriage. Patient states [employer] and was referred to her through Dr. Salazar who was her PCP. DISCHARGE: At this time pt. is stable for d/c to home. Will provide printed patient care instructions, and any necessary prescriptions. Care plan and follow up instructions have been discussed with the patient prior to discharge. Labs Test 01/17/18 12:55 01/17/18 13:37 White Blood Count 6.4 K/UL (4.8-10.8) Red Blood Count 3.84 M/UL (4.20-5.40) Hemoglobin 12.9 G/DL (12.0-16.0) Hematocrit 37.6 % (37.0-47.0) Mean Corpuscular Volume 98 FL (80-99) Mean Corpuscular Hemoglobin 33.6 PG (27.0-31.0) Mean Corpuscular Hemoglobin Concent 34.4 G/DL (32.0-36.0) Red Cell Distribution Width 11.4 % (11.6-14.8) Platelet Count 278 K/UL (150-450) Mean Platelet Volume 7.4 FL (6.5-10.1) Neutrophils (%) (Auto) 58.4 % (45.0-75.0) Lymphocytes (%) (Auto) 31.5 % (20.0-45.0) Monocytes (%) (Auto) 7.3 % (1.0-10.0) Eosinophils (%) (Auto) 0.7 % (0.0-3.0) Basophils (%) (Auto) 2.1 % (0.0-2.0) Sodium Level 139 MMOL/L (136-145) Potassium Level 3.7 MMOL/L (3.5-5.1) Chloride Level 103 MMOL/L (98-107) Carbon Dioxide Level 28 MMOL/L (21-32) Anion Gap 8 mmol/L (5-15) Blood Urea Nitrogen 9 mg/dL (7-18) Creatinine 0.7 MG/DL (0.55-1.30) Estimat Glomerular Filtration Rate > 60 mL/min (>60) Glucose Level 111 MG/DL (74-106) Calcium Level 9.1 MG/DL (8.5-10.1) Human Chorionic Gonadotropin, Quant 1385 mIU/mL (1-6) Urine Color Yellow Urine Appearance Clear Urine pH 6 (4.5-8.0) Urine Specific [place] 1.020 (1.005-1.035) Urine Protein 2+ (NEGATIVE) Urine Glucose (UA) Negative (NEGATIVE) Urine Ketones 1+ (NEGATIVE) Urine Occult Blood 5+ (NEGATIVE) Urine Nitrite Negative (NEGATIVE) Urine Bilirubin Negative (NEGATIVE) Urine Urobilinogen 4 MG/DL (0.0-1.0) Urine Leukocyte Esterase 1+ (NEGATIVE) Urine RBC 15-20 /HPF (0 - 2) Urine WBC 5-10 /HPF (0 - 2) Urine Squamous Epithelial Cells Few /LPF (NONE/OCC) Urine Calcium Oxalate Crystals Few /LPF (NONE) Urine Bacteria None /HPF (NONE) (Chelsea Sesay) CT/MRI/US Diagnostic Results CT/MRI/US Diagnostic Results : Imaging Test Ordered: US Pelvic Impression " Nonspecific tiny cystic structure in the central part of the uterus. Considerations include early intrauterine , remnant of spontaneous , non- related cyst. Correlation with quantitative beta hCG recommended. Follow-up suggested, uterine fibroids unremarkable ovaries.' Per official radiology report- Please see report for specific details. (Chelsea Sesay) Last Vital Signs Date Time Temp Pulse Resp B/P (MAP) Pulse Ox O2 Delivery O2 Flow Rate FiO2 01/17/18 12:27 98.3 103 20 105/66 96 Room Air 98.2 (Chelsea Sesay) Reevaluation Impression I contacted the patient 01/19. I reviewed above information. Based on UA 01/14, I believe the patient needs to continue antibiotics. As she is still potentially with an early , looking at sensitivities, I suggested and called in Macrobid (it is intermediate). I also discussed the Quant. She had a repeat done today, but will not know the results until Monday. She understands and will be following up with her Ob and also will get a repeat UA done to make sure the fairly resistant E coli is treated. (Adrian Voss M.D.) Disposition: HOME, SELF-CARE Condition: Stable Scripts Acetaminophen* (TYLENOL EXTRA STRENGTH*) 500 Mg Tablet 500 MG ORAL Q6H PRN for Mild Pain/Temp > 100.5, #20 TAB 0 Refills Prov: Chelsea Sseay 01/17/18 Referrals: NON PHYSICIAN (PCP) Patient Instructions: Miscarriage, [id number], Threatened Miscarriage Additional Instructions: Take medications as directed. Follow up with a OBGYN within 48 Hours, even if your symptoms have resolved. Return sooner to ED if new symptoms occur, or current symptoms become worse. - Please note that this Emergency Department Report was dictated using [employer] manager technology software, occasionally this can lead to erroneous entry secondary to interpretation by the dictation equipment. Chelsea Sesay January 17, 2018 15:29 Adrian Voss M.D. January 19, 2018 13:33
[2018-01-17] MEDS ORDERED: TYLENOL EXTRA500 MG ORAL (15:30)
[2018-01-17 15:50] VITALS: BP 110/70
[2018-01-19] MEDS ORDERED: NITROFURANTOIN100 M2 ORAL (13:35)
== END 2018-01-17 15:50 | disposition home or self-care (01) ==
LOC: EMR 13:00
DX: O20.0 Threatened abortion (principal); O34.11 Maternal care for benign tumor of corpus uteri, first trimester; D25.9 Leiomyoma of uterus, unspecified
CPT/HCPCS: 36415; 76801; 80048; 81003; 84702; 85025; 99284

== ENCOUNTER 2018-12-13 07:36 | Emergency (ER) | payer MEDICAID ==
[~2018-12-13] VITALS: Ht 165.1 cm; Wt 72.6 kg
[~2018-12-13 07:36] MED LIST changes: +NITROFURANTOIN100 M2 ORAL
--- NOTE | 2018-12-13 07:42 | NUR ---
ED Nurse Note: PT BROUGHT IN BY R894 FROM HOME. AOX4. PT C/O GENERALIZED BODY PAIN AND SORE THROAT, 10/10 X YESTERDAY AROUND 1600. PT DENIES NAUSEA, VOMITING, OR DIARRHEA. PT DENIES COUGH OR FEVER.
[2018-12-13 07:44] VITALS: BP 112/72
[2018-12-13] MEDS ORDERED: Dexamethasone 4mg/ml vial IVP ONE (07:45)
[2018-12-13] MEDS ORDERED: Ketorolac 30mg Inj IV ONE (07:45)
[2018-12-13] MEDS ORDERED: cefTRIAXone 1 GM in NS 55 ML IVPB ONE (07:45)
--- NOTE | 2018-12-13 07:53 | Emergency Room Report ---
History of Present Illness General Chief Complaint: Flu Like Symptoms Source: Patient Present Illness HPI Patient presents with sore throat ear pain and general body weakness starting yesterday. She was brought in by EMS. She's was unable to ambulate. She took Thera Flu last night. This helped slightly. She denies any fevers or chills but feels feverish. She denies nausea vomiting or diarrhea. The pain is 8/10 throughout her body. She also has some headache. She denies being at this time. She has not heard herself wheezing. The patient's had hypokalemia in the past. No nausea, vomiting, diarrhea, dysuria. All headache and muscle aches. Allergies: Coded Allergies: No Known Allergies (Unverified , 06/29/15) Patient History Past Medical History: see triage record Past Surgical History: , other - Tubal ligation Social History: Reports: smoking, alcohol use, drug use - [facility] Social History Narrative restaurant hourly manager at [employer] Now: No Reviewed Nursing Documentation: PMH: Agreed; PSxH: Agreed Nursing Documentation-PM Past Medical History: No History, Except For Hx Cardiac Problems: No Hx Hypertension: No Hx Pacemaker: No Hx Asthma: No Hx COPD: No Hx Diabetes: No Hx Neurological Problems: No Hx Cerebrovascular Accident: No Hx Seizures: No Review of Systems All Other Systems: negative except mentioned in HPI Physical Exam Vital Signs Date Time Temp Pulse Resp B/P (MAP) Pulse Ox O2 Delivery O2 Flow Rate FiO2 12/13/18 07:38 99.3 101 18 110/68 100 Room Air Sp02 EP Interpretation: reviewed, normal General Appearance: well appearing, no apparent distress, GCS 15 Head: normocephalic Eyes: bilateral eye normal inspection ENT: TMs + canals normal - Slight bulge left TM right is normal, moist mucus membranes, tonsillar swelling, pharyngeal erythema, tonsillar exudate Neck: supple Respiratory: lungs clear, normal breath sounds Cardiovascular #1: regular rate, rhythm, no edema Cardiovascular #2: 2+ radial (R) Gastrointestinal: normal inspection, normal bowel sounds, non tender, no mass, non-distended Musculoskeletal: back normal, gait/station normal, normal range of motion Neurologic: alert, oriented x3, grossly normal Psychiatric: depressed affect Skin: normal inspection, warm/dry Medical Decision Making Diagnostic Impression: Primary Impression: Pharyngitis Qualified Codes: J02.0 - Streptococcal pharyngitis Additional Impressions: Otitis media Qualified Codes: H66.002 - Acute suppurative otitis media without spontaneous rupture of ear drum, left ear Hypokalemia ER Course Patient presents with sore throat ear pain since yesterday. She also has weakness. I differential includes influenza, strep with otitis media, viral syndrome amongst others. She's weak at this time and we need to exclude electrolyte imbalance. She will receive IV hydration, dexamethasone, Toradol and Rocephin. Leukocytosis. Low K. Unable to take K by mouth. Dramatically improved with improved voice inability to swallow. Discussed treatment plan and the need to increase potassium-rich foods. Also important to arrange for follow-up. Patient stable for outpatient observation and treatment Laboratory Tests Test 12/13/18 08:15 White Blood Count 18.8 K/UL (4.8-10.8) H Red Blood Count 3.92 M/UL (4.20-5.40) L Hemoglobin 12.8 G/DL (12.0-16.0) Hematocrit 37.7 % (37.0-47.0) Mean Corpuscular Volume 96 FL (80-99) Mean Corpuscular Hemoglobin 32.5 PG (27.0-31.0) H Mean Corpuscular Hemoglobin Concent 33.8 G/DL (32.0-36.0) Red Cell Distribution Width 11.4 % (11.6-14.8) L Platelet Count 289 K/UL (150-450) Mean Platelet Volume 7.7 FL (6.5-10.1) Neutrophils (%) (Auto) % (45.0-75.0) Lymphocytes (%) (Auto) % (20.0-45.0) Monocytes (%) (Auto) % (1.0-10.0) Eosinophils (%) (Auto) % (0.0-3.0) Basophils (%) (Auto) % (0.0-2.0) Neutrophils % (Manual) Pending Lymphocytes % (Manual) Pending Platelet Estimate Pending Platelet Morphology Pending Urine Color Pale yellow Urine Appearance Clear Urine pH 8 (4.5-8.0) Urine Specific [place] 1.005 (1.005-1.035) Urine Protein Negative (NEGATIVE) Urine Glucose (UA) Negative (NEGATIVE) Urine Ketones Negative (NEGATIVE) Urine Blood 3+ (NEGATIVE) H Urine Nitrite Negative (NEGATIVE) Urine Bilirubin Negative (NEGATIVE) Urine Urobilinogen Normal MG/DL (0.0-1.0) Urine Leukocyte Esterase Negative (NEGATIVE) Urine RBC 2-4 /HPF (0 - 2) H Urine WBC 0 /HPF (0 - 2) Urine Squamous Epithelial Cells Occasional /LPF Urine Bacteria Occasional /HPF (NONE) Urine HCG, Qualitative Negative (NEGATIVE) Sodium Level 137 MMOL/L (136-145) Potassium Level 3.3 MMOL/L (3.5-5.1) L Chloride Level 101 MMOL/L (98-107) Carbon Dioxide Level 27 MMOL/L (21-32) Anion Gap 9 mmol/L (5-15) Blood Urea Nitrogen 7 mg/dL (7-18) Creatinine 0.8 MG/DL (0.55-1.30) Estimate Glomerular Filtration Rate > 60 mL/min (>60) Glucose Level 96 MG/DL (74-106) Calcium Level 8.8 MG/DL (8.5-10.1) Total Bilirubin 1.0 MG/DL (0.2-1.0) Aspartate Amino Transferase (AST) 14 U/L (15-37) L Alanine Aminotransferase (ALT) 23 U/L (12-78) Alkaline Phosphatase 64 U/L (46-116) Total Protein 7.2 G/DL (6.4-8.2) Albumin 3.7 G/DL (3.4-5.0) Globulin 3.5 g/dL Albumin/Globulin Ratio 1.1 (1.0-2.7) Microbiology Date/Time Source Procedure Growth Status 12/13/18 08:15 Nasal Nares Influenza Types A,B Antigen (JOURDAN) - Final Complete Last Vital Signs Date Time Temp Pulse Resp B/P (MAP) Pulse Ox O2 Delivery O2 Flow Rate FiO2 12/13/18 09:49 98.9 84 17 118/72 100 Room Air Status: improved Disposition: HOME, SELF-CARE Condition: Improved Scripts Chlorpheniramine Maleate (CHLOR-TRIMETON) 4 Mg Tablet 4 MG PO Q6HR PRN for congestion/ear pain, #10 TAB Prov: Adrian Voss MD 12/13/18 Amoxicillin/Potassium Clav Es-600 Suspension (AUGMENTIN ES-600 SUSPENSION) 600 Mg/5 Ml Susp.recon 600 MG ORAL EVERY 12 HOURS, #70 ML Take with food & water Prov: Adrian Voss MD 12/13/18 Adrian Voss MD Dec 13, 2018 07:53
[2018-12-13 08:24] LABS: HEMATOCRIT 37.7 % (37.0-47.0); HEMOGLOBIN 12.8 G/DL (12.0-16.0); MEAN CORPUSCULAR VOLUME 96 FL (80-99); PLATELET COUNT 289 K/UL (150-450); RED BLOOD COUNT 3.92 M/UL (4.20-5.40); RED CELL DISTRIBUTION WIDTH 11.4 % (11.6-14.8); WHITE BLOOD COUNT 18.8 K/UL (4.8-10.8)
[2018-12-13 08:26] LABS: APPEARANCE,URINE CLEAR; BILIRUBIN, URINE NEGATIVE (NEGATIVE); COLOR,URINE PALE YELLOW; GLUCOSE, URINE (UA) NEGATIVE (NEGATIVE); KETONES,URINE NEGATIVE (NEGATIVE); LEUKOCYTE ESTERASE ,URINE NEGATIVE (NEGATIVE); NITRITE,URINE NEGATIVE (NEGATIVE); PH,URINE 8 (4.5-8.0); PROTEIN,URINE NEGATIVE (NEGATIVE); UROBILINOGEN,URINE NORMAL MG/DL (0.0-1.0)
[2018-12-13 08:34] LABS: ANION GAP 9 mmol/L (5-15); BLOOD UREA NITROGEN 7 mg/dL (7-18); CALCIUM 8.8 MG/DL (8.5-10.1); CARBON DIOXIDE 27 MMOL/L (21-32); CHLORIDE 101 MMOL/L (98-107); CREATININE 0.8 MG/DL (0.55-1.30); POTASSIUM 3.3 MMOL/L (3.5-5.1); SODIUM 137 MMOL/L (136-145)
[2018-12-13 08:39] LABS: ALANINE AMINOTRANSFERASE 23 U/L (12-78); ALBUMIN 3.7 G/DL (3.4-5.0); ALBUMIN/GLOBULIN RATIO 1.1 (1.0-2.7); ALKALINE PHOSPHATASE 64 U/L (46-116); ASPARTATE AMINO TRANSFERASE 14 U/L (15-37)
[2018-12-13] MEDS ORDERED: CHLOR-TRIMETON4 MG PO (09:27)
[2018-12-13] MEDS ORDERED: AUGMENTIN600 MG/5 M ORAL (09:27)
[2018-12-13 09:49] VITALS: BP 118/72
== END 2018-12-13 09:49 | disposition home or self-care (01) ==
LOC: EDBD 07:36 → EDUNIT# 07:36 → EMR 08:21
DX: J02.9 Acute pharyngitis, unspecified (principal); H66.92 Otitis media, unspecified, left ear; E87.6 Hypokalemia; F12.90 Cannabis use, unspecified, uncomplicated; F17.200 Nicotine dependence, unspecified, uncomplicated
CPT/HCPCS: 36415; 80053; 81003; 81025; 85007; 85025; 86710; 96361; 96365; 96367; 96375; 99284; J0696; J1100; J1885; J3480; J8499

== ENCOUNTER 2019-09-13 14:57 | Emergency (ER) | payer MEDICAID ==
[~2019-09-13] VITALS: Ht 165.1 cm; Wt 74.8 kg
[~2019-09-13 14:57] MED LIST changes: +AUGMENTIN600 MG/5 M ORAL; +CHLOR-TRIMETON4 MG PO
[2019-09-13 15:33] VITALS: BP 122/85
--- NOTE | 2019-09-13 16:12 | Diagnostic Imaging Report ---
Indication: left shoulder pain Findings: 3 views of the left shoulder were obtained. Alignment of the left shoulder is normal. No acute fracture is identified. Soft tissues are unremarkable. Impression: No acute injury
--- NOTE | 2019-09-13 16:15 | Emergency Room Report ---
History of Present Illness General Chief Complaint: Pain Source: Patient Present Illness HPI 39-year-old female presents to the emergency department complaining of 5 out of 10 severity pain in the left shoulder as well as the left wrist times several months. Patient reports that over the past 2 to 3 weeks the pain in the left wrist has increased and she is also noticed some swelling. Patient denies appreciable trauma or fall. Patient states she has been applying a Carlos Enrique wrap without relief. Patient reports that she took Motrin here and there but not consistently and she states that her symptoms are progressing. She denies rashes, bruises or erythema. She denies neck or back pain. She reports that she is right handed. Denies numbness tingling or loss of sensation or gross motor movements of the extremities. Denies CP, Palpitations, LOC, AMS, dizziness, Changes in Vision, weakness or a sudden severe headache. Allergies: Coded Allergies: No Known Allergies (Unverified , 06/29/15) Patient History Past Medical History: see triage record Past Surgical History: none Pertinent Family History: none Last Menstrual Period: 07/30/19 Now: No Reviewed Nursing Documentation: PMH: Agreed; PSxH: Agreed Nursing Documentation-PMH Past Medical History: No Stated History Hx Cardiac Problems: No Hx Hypertension: No Hx Pacemaker: No Hx Asthma: No Hx COPD: No Hx Diabetes: No Hx Neurological Problems: No Hx Cerebrovascular Accident: No Hx Seizures: No Review of Systems All Other Systems: negative except mentioned in HPI Physical Exam Vital Signs Date Time Temp Pulse Resp B/P (MAP) Pulse Ox O2 Delivery O2 Flow Rate FiO2 09/13/19 15:05 97.9 98 16 122/85 (97) 94 Room Air Sp02 EP Interpretation: reviewed, normal General Appearance: no apparent distress, alert, GCS 15, non-toxic Head: normocephalic, atraumatic Eyes: bilateral eye normal inspection, bilateral eye PERRL ENT: hearing grossly normal, normal voice Neck: full range of motion, no meningismus, no bony tend Respiratory: lungs clear, normal breath sounds, no wheezing, speaking full sentences Cardiovascular #1: regular rate, rhythm, normal capillary refill Cardiovascular #2: 2+ radial (R), 2+ radial (L) Musculoskeletal: normal range of motion, gait/station normal, tender - TTP to the anteiror left shoulder, FROM, no clicking or cracking. TTp to the left forearm wrist and thenar aspect of the left hand. , swelling - thenar aspect of the left hand and forearm. no erythema, no bruises, FROM, no increased laxity. Neurologic: alert, motor strength/tone normal, oriented x3, sensory intact, responsive, speech normal Psychiatric: judgement/insight normal Skin: normal color, normal inspection Medical Decision Making LOLITA Jones Is my supervising Physician whom patient management has been discussed with. Diagnostic Impression: Primary Impression: Radiculopathy of arm Additional Impression: possible scaphoid fracture ER Course 39-year-old female presents to the emergency department complaining of 5 out of 10 severity pain in the left shoulder as well as the left wrist times several months. Patient reports that over the past 2 to 3 weeks the pain in the left wrist has increased and she is also noticed some swelling. Patient denies appreciable trauma or fall. Patient states she has been applying a Carlos Enrique wrap without relief. Patient reports that she took Motrin here and there but not consistently and she states that her symptoms are progressing. She denies rashes, bruises or erythema. She denies neck or back pain. She reports that she is right handed. Denies numbness tingling or loss of sensation or gross motor movements of the extremities. Denies CP, Palpitations, LOC, AMS, dizziness, Changes in Vision, weakness or a sudden severe headache. Ddx considered but are not limited to Fracture, dislocation, contusion, Sprain/ Strain/Spasm, Carpal tunnel syndrome, radiculopathy. Vital signs: are WNL, pt. is afebrile H&PE are most consistent with musculoskeletal injury will perform imaging to r/ o fractures/dislocations. ORDERS: - X-ray Left Shoulder and Left Wrist - negative for fx, Dislocation, or significant soft tissue injury, per preliminary read in ED, and signed by LOLITA Sesay, my supervising physician has reviewed, and agrees with my interpretation. ED INTERVENTIONS: - Motrin 600mg PO - Left Thumb Spika Splint applied by emergency medical tech. Pt. remains neurovascularly intact. -I do not identify an emergent condition at this time. With current presentation , pt. is stable for close outpatient follow up and conservative treatment. D/ w pt. to return promptly to ED with worsening or new symptoms.- Pt. verbalizes' understanding and agreement with proposed treatment plan. DISCHARGE: At this time pt. is stable for d/c to home. Will provide printed patient care instructions, and any necessary prescriptions. Care plan and follow up instructions have been discussed with the patient prior to discharge. Other X-Ray Diagnostic Results Other X-Ray Diagnostic Results #1: X-Ray ordered: Left Shoulder # of Views/Limited Vs Complete: 3 View Indication: Pain EP Interpretation: Yes PA Xray: Interpretation reviewed, by supervising MD, and agrees with findings. Interpretation: no dislocation, no soft tissue swelling, no fractures Impression: No acute disease Electronically Signed by: Chelsea Sesay PA-C Other X-Ray Diagnostic Results #2: X-Ray ordered: Left wrist # of Views/Limited Vs Complete: 2 View Indication: Pain EP Interpretation: Yes PA Xray: Interpretation reviewed, by supervising MD, and agrees with findings. Interpretation: no dislocation, no soft tissue swelling, other - suspected malunion of previous scaphoid fracture. Impression: Other - abnormal Electronically Signed by: Chelsea Sesay PA-C Last Vital Signs Date Time Temp Pulse Resp B/P (MAP) Pulse Ox O2 Delivery O2 Flow Rate FiO2 09/13/19 15:33 97.9 79 16 122/85 94 Room Air Status: improved Disposition: HOME, SELF-CARE Condition: Stable Scripts Gabapentin* (GABAPENTIN*) 100 Mg Capsule 200 MG ORAL BID for 7 Days, #28 CAP Prov: Chelsea Sesay 09/13/19 Ibuprofen* (MOTRIN*) 600 Mg Tablet 600 MG ORAL THREE TIMES A DAY, #30 TAB 0 Refills Prov: Chelsea Sesay 09/13/19 Referrals: [facility],REFERRING (PCP) Patient Instructions: Carpal Tunnel Syndrome, [id number], Radicular Pain Additional Instructions: Take medications as directed. Follow up with an Neurologist in 3-5 days, even if your symptoms have resolved. If symptoms persist more advanced testing/exams may be required at the discretion of your PCP or Neuro-Specialist. --Please review list of primary care clinics, if you do not already have a primary care provider who can give you an Orthopedic Referral. Return sooner to ED if new symptoms occur, or current symptoms become worse. Do not drink alcohol, drive, or operate heavy machinery while taking Gabapentin as this may cause drowsiness. - Please note that this Emergency Department Report was dictated using [employer] technology software, occasionally this can lead to erroneous entry secondary to interpretation by the dictation equipment. Chelsea Sesay Sep 13, 2019 16:15
[2019-09-13] MEDS ORDERED: GABAPENTIN100 MG ORAL (16:16)
[2019-09-13] MEDS ORDERED: IBUPROFEN600 MG ORAL (16:16)
[2019-09-13 16:40] VITALS: BP 125/84
--- NOTE | 2019-09-13 17:51 | Diagnostic Imaging Report ---
EXAM: XR Left Wrist Complete, 3 or More Views CLINICAL HISTORY: PAIN TECHNIQUE: Frontal, lateral and oblique views of the left wrist. COMPARISON: X-ray dated 01/27/2017 FINDINGS: Bones/joints: Unremarkable. No acute fracture. No dislocation. Soft tissues: Unremarkable. No radiopaque foreign body. IMPRESSION: Normal left wrist x-rays.
== END 2019-09-13 16:40 | disposition home or self-care (01) ==
LOC: EMR 15:30
DX: M25.532 Pain in left wrist (principal); M54.10 Radiculopathy, site unspecified
CPT/HCPCS: 29125; 73030; 73110; Z7502; 99284

== ENCOUNTER 2019-10-28 16:38 | Emergency (ER) | payer MEDICAID, OTHER ==
[~2019-10-28] VITALS: Ht 165.1 cm; Wt 74.8 kg
[~2019-10-28 16:38] MED LIST changes: +GABAPENTIN100 MG ORAL
[2019-10-28 17:12] VITALS: BP 117/84
--- NOTE | 2019-10-28 17:12 | NUR ---
ED Nurse Note: pt states having a lump to her left neck area since monday and now noticing her left ear is having sharp pain. denies sore throat.
--- NOTE | 2019-10-28 17:51 | Emergency Room Report ---
History of Present Illness General Chief Complaint: Earache Source: Patient Present Illness HPI 39-year-old female presents with submandibular pain x3 days, now with earache, no fevers no chills, patient endorses some gum pain and swelling no aggravating relieving factors severity is moderate, constant patient was worried that she had an ear infection or she had a gum infection, patient is tolerating good p.o. patient presents for evaluation Allergies: Coded Allergies: No Known Allergies (Unverified , 06/29/15) Patient History Past Medical History: see triage record Social History: Reports: smoking Last Menstrual Period: 10-15 Now: No Reviewed Nursing Documentation: PMH: Agreed; PSxH: Agreed Nursing Documentation-PMH Past Medical History: No History, Except For Hx Cardiac Problems: No Hx Hypertension: No Hx Pacemaker: No Hx Asthma: No Hx COPD: No Hx Diabetes: No Hx Neurological Problems: No Hx Cerebrovascular Accident: No Hx Seizures: No Review of Systems All Other Systems: negative except mentioned in HPI Physical Exam Vital Signs Date Time Temp Pulse Resp B/P (MAP) Pulse Ox O2 Delivery O2 Flow Rate FiO2 10/28/19 17:03 98.6 78 20 117/84 (95) 99 Room Air General Appearance: well appearing, no apparent distress Head: normocephalic, atraumatic Eyes: bilateral eye PERRL, bilateral eye EOMI ENT: hearing grossly normal, normal voice, TMs + canals normal, moist mucus membranes, other - Patient with submandibular pain of the lymph node left side, oropharynx has poor dentition no gum swelling no discharge Neck: full range of motion, supple Respiratory: no respiratory distress, speaking full sentences Neurologic: alert, normal gait Psychiatric: mood/affect normal Skin: no rash Medical Decision Making Diagnostic Impression: Primary Impression: Lymph nodes enlarged Additional Impression: Dental caries ER Course 39-year-old female presents with left mandibular pain concerning for lymph node drainage from may be a possible dental carry Patient did not want a test deferred aware risks and benefits will start penicillin Patient will follow-up with her PCP as well as dental Last Vital Signs Date Time Temp Pulse Resp B/P (MAP) Pulse Ox O2 Delivery O2 Flow Rate FiO2 10/28/19 17:12 98.6 81 22 117/84 99 Room Air Disposition: HOME, SELF-CARE Condition: Stable Scripts Penicillin V Potassium* (PENVK*) 500 Mg Tablet 500 MG PO Q6H, #28 TAB 0 Refills Prov: Lawrence Jones MD 10/28/19 Referrals: [facility] Patient Instructions: Dental Caries, [id number] Additional Instructions: The patient was provided with discharge instructions, notified to follow-up with a primary care doctor and or specialist in the next 24-48 hours, and to return to the ED if they have worsening of their symptoms. Please note that this report is being documented using [employer] technology. This can lead to erroneous entry secondary to incorrect interpretation by the dictating instrument. Lawrence Jones MD Oct 28, 2019 17:51
[2019-10-28] MEDS ORDERED: PENICILLIN V P500 MG PO (17:56)
[2019-10-28 17:58] VITALS: BP 121/74
--- NOTE | 2019-10-28 17:58 | NUR ---
ER DISCHARGE NOTE: Patient is cleared to be discharged per ERMD, pt is aox4, on room air, with stable vital signs. pt was given dc and prescription instructions, pt was able to verbalize understanding, pt id bandremoved pt is able to ambulate with steady gait. pt took all belongings.
== END 2019-10-28 17:58 | disposition home or self-care (01) ==
LOC: EMR 17:50
DX: R59.9 Enlarged lymph nodes, unspecified (principal); K02.9 Dental caries, unspecified; F17.200 Nicotine dependence, unspecified, uncomplicated
CPT/HCPCS: 99282

== ENCOUNTER 2020-08-09 18:03 | Emergency (ER) | payer MEDICAID ==
[~2020-08-09] VITALS: Ht 162.6 cm; Wt 73.5 kg
[~2020-08-09 18:03] MED LIST changes: +PENICILLIN V P500 MG PO
--- NOTE | 2020-08-09 18:13 | NUR ---
ED Nurse Note: Pt ambulated to ed c/o bump on posterior right head since last night. Assessed area, pimple like mass noted, pus noted at top of bump. Pt reports taking iburprofen this mornging for headaches but did not alleviate pain. pt reports chills, denies cough, fever, flu-like symptoms. denies use of new hair products.
[2020-08-09 18:18] VITALS: BP 127/85
--- NOTE | 2020-08-09 18:26 | Emergency Room Report ---
History of Present Illness General Chief Complaint: Skin Rash/Abscess Source: Patient, Medical Record Present Illness HPI 41-year-old female with no symptom hospital history here complaining of 2 days of a lump that she has felt in the back of her head which is painful to palpation. Also complains of chills and 1 week of right-sided neck and shoulder pain. 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 Denies any fall or injury. Denies tingling or numbness. Denies cough, congestion, shortness of breath, diarrhea. Has not taken medication for symptom relief. Denies .Denies neck stiffness and photophobia Allergies: Coded Allergies: No Known Allergies (Unverified , 06/29/15) COVID-19 Screening Contact w/high risk pt: No Experienced COVID-19 symptoms?: No COVID-19 Testing performed GOLD LAYER: No Patient History Past Medical History: see triage record Past Surgical History: none Pertinent Family History: none Now: No Immunizations: UTD Reviewed Nursing Documentation: PMH: Agreed; PSxH: Agreed Nursing Documentation-PMH Past Medical History: No History, Except For Hx Cardiac Problems: No Hx Hypertension: No Hx Pacemaker: No Hx Asthma: No Hx COPD: No Hx Diabetes: No Hx Neurological Problems: No Hx Cerebrovascular Accident: No Hx Seizures: No Review of Systems All Other Systems: negative except mentioned in HPI Physical Exam Vital Signs Date Time Temp Pulse Resp B/P (MAP) Pulse Ox O2 Delivery O2 Flow Rate FiO2 08/09/20 18:07 98.2 96 19 127/85 (99) 95 Room Air Sp02 EP Interpretation: reviewed, normal General Appearance: no apparent distress, alert, GCS 15, non-toxic Head: normocephalic, atraumatic Eyes: bilateral eye normal inspection, bilateral eye PERRL ENT: hearing grossly normal, normal pharynx, no angioedema, normal voice Neck: full range of motion, supple/symm/no masses Medical Decision Making PA Attestation All my diagnosis and treatment plans were reviewed ad discussed with my supervising physician Dr. Hollis Diagnostic Impression: Primary Impression: Cervical strain Additional Impression: Acute folliculitis ER Course 41-year-old female with no symptom hospital history here complaining of 2 days of a lump that she has felt in the back of her head which is painful to palpation. Also complains of chills and 1 week of right-sided neck and shoulder pain. 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 Denies any fall or injury. Denies tingling or numbness. Denies cough, congestion, shortness of breath, diarrhea. Has not taken medication for symptom relief. Denies . Denies neck stiffness and photophobia Ddx considered but are not limited to : Cellulitis, acute folliculitis, superficial infection, abscess Vital signs: are WNL, pt. is afebrile H&PE are most consistent with: Cervical strain, acute folliculitis ORDERS: Robaxin, lidocaine patch, Motrin, Augmentin ED INTERVENTIONS: None required at this time. DISCHARGE: At this time pt. is stable for d/c to home. Will provide printed patient care instructions, and any necessary prescriptions. Care plan and follow up instructions have been discussed with the patient prior to discharge. Patient take medication as directed, follow primary care provider, avoid irritating the area, if worsening symptoms into the emergency room Last Vital Signs Date Time Temp Pulse Resp B/P (MAP) Pulse Ox O2 Delivery O2 Flow Rate FiO2 08/09/20 18:18 98.2 96 19 127/85 95 Room Air Disposition: HOME, SELF-CARE Condition: Stable Scripts Amoxicillin/Potassium Clav 875-125* (AUGMENTIN 875-125 TABLET*) 1 Each Tablet 1 TAB ORAL TWICE A DAY for 7 Days, #14 TAB Prov: David Reese 08/09/20 Lidocaine Patch* (Lidoderm Patch*) 1 Each Adh..patch 1 PATCH TOPIC DAILY, #30 PATCH Patch(es) may remain in place for up to 12 hours in any 24-hour period. Prov: David Reese 08/09/20 Ibuprofen* (MOTRIN*) 600 Mg Tablet 600 MG ORAL THREE TIMES A DAY, #30 TAB Prov: David Reese 08/09/20 Methocarbamol* (ROBAXIN-500*) 500 Mg Tablet 500 MG ORAL TID PRN for For Pain, #15 TAB 0 Refills Prov: David Reese 08/09/20 Referrals: NON PHYSICIAN (PCP) Patient Instructions: Cervical Strain and Sprain With Rehab-Sports[facility], Follicu litis Additional Instructions: Take medication as directed, follow primary care provider, avoid strenuous physical activity, if worsening symptoms return to the emergency room David Reese Aug 09, 2020 18:26
[2020-08-09] MEDS ORDERED: IBUPROFEN600 M1 ORAL (18:29)
[2020-08-09] MEDS ORDERED: AUGMENTIN 875-1 EAC1 ORAL (18:29)
[2020-08-09] MEDS ORDERED: LIDODERM700 M1 TOPIC (18:29)
[2020-08-09] MEDS ORDERED: ROBAXIN-500MG ORAL (18:29)
[2020-08-09 18:38] VITALS: BP 127/85
--- NOTE | 2020-08-09 18:39 | NUR ---
ED Nurse Note: Pt cleared by ERPA for discharge. DC instructions/prescription was given and explained to pt and verbalized understanding of teachings. All medical deviecs such as ID band removed. Pt is AAO x4, ambulatory and left with all personal belongings.
== END 2020-08-09 18:38 | disposition home or self-care (01) ==
LOC: EMR 18:15
DX: L73.9 Follicular disorder, unspecified (principal); S16.1XXA Strain of muscle, fascia and tendon at neck level, initial encounter; X50.0XXA Overexertion from strenuous movement or load, initial encounter; Y92.9 Unspecified place or not applicable
CPT/HCPCS: 99282

== ENCOUNTER 2020-08-11 20:38 | Emergency (ER) | payer MEDICAID ==
[~2020-08-11] VITALS: Ht 162.6 cm; Wt 73.5 kg
[~2020-08-11 20:38] MED LIST changes: +AUGMENTIN 875-1 EAC1 ORAL; +IBUPROFEN600 M1 ORAL; +LIDODERM700 M1 TOPIC; +ROBAXIN-500MG ORAL
--- NOTE | 2020-08-11 21:15 | NUR ---
ED Nurse Note: Recieved pt from home, here with c/o bumps on scalp and neck swelling, pt noted with pimple like lesion behind right ear x 1 week, seen here some days ago, given prescriptins but getting worse in pain, also nodules noted in right neck lymphnode area, pt has pain at 8/10, denies cp, sob, or any other complaints or discomforts.
--- NOTE | 2020-08-11 21:21 | Emergency Room Report ---
History of Present Illness General Chief Complaint: Skin Rash/Abscess Source: Patient Present Illness HPI Patient represents to the emergency department. She was seen August 09 and diagnosed with cervical strain and folliculitis of the scalp. She was placed on Augmentin and given Motrin. The pain is continuous and keeping her awake at night. Is worse when she tries to lay her head on the pillow and is pressure on the back of her head. There is a bump in the scalp. She is felt feverish but denies any documented temperature. The pain currently is 5/10. In addition over the last 24 hours she has noticed that there are 2 bumps in the side of her neck which are also tender. She denies neck stiffness at this time. The pain is keeping her awake at night. She is having trouble focusing on her work and had to come Monday because of the pain. She last took Motrin this morning. Patient denies exposure to Covid positive contacts. Last menstruation July 21 and normal for her. Allergies: Coded Allergies: No Known Allergies (Unverified , 06/29/15) COVID-19 Screening Contact w/high risk pt: No Experienced COVID-19 symptoms?: No COVID-19 Testing performed ACCOUNT CLERK: No Patient History Past Medical History: see triage record Past Surgical History: , other - Ectopic Social History: Reports: alcohol use, drug use - THC; Denies: smoking Social History Narrative Works at [employer] Last Menstrual Period: 07/21/2020 Now: No : 5 Para: 2 Reviewed Nursing Documentation: PMH: Agreed; PSxH: Agreed Nursing Documentation-PMH Past Medical History: No History, Except For Hx Cardiac Problems: No Hx Hypertension: No Hx Pacemaker: No Hx Asthma: No Hx COPD: No Hx Diabetes: No Hx Neurological Problems: No Hx Cerebrovascular Accident: No Hx Seizures: No Review of Systems Constitutional: Reports: see HPI Eye: Denies: eye pain ENT: Reports: see HPI Respiratory: Denies: shortness of breath Musculoskeletal: Reports: see HPI Skin: Reports: see HPI Neurological: Reports: see HPI Physical Exam Vital Signs Date Time Temp Pulse Resp B/P (MAP) Pulse Ox O2 Delivery O2 Flow Rate FiO2 08/11/20 20:39 97.5 105 18 132/73 (92) 100 Room Air Sp02 EP Interpretation: reviewed, normal General Appearance: well appearing, no apparent distress, GCS 15 Head: normocephalic, other - See skin Eyes: bilateral eye normal inspection, bilateral eye PERRL, bilateral eye EOMI ENT: moist mucus membranes Neck: full range of motion, supple, tender - Lymph nodes Respiratory: normal inspection Cardiovascular #1: regular rate, rhythm Cardiovascular #2: 2+ radial (R) Gastrointestinal: normal inspection Musculoskeletal: gait/station normal Neurologic: alert, grossly normal Psychiatric: mood/affect normal Skin: normal color, warm/dry, other - 1 cm circumference nodule in the scalp in the right occipital area with minimal fluctuance but possible pointing no erythema Lymphatic: adenopathy - 2 cervical lymph nodes which are slightly tender on the right-hand side below where the scalp lesion is Medical Decision Making Diagnostic Impression: Primary Impression: Acute folliculitis Additional Impression: Cervical adenopathy ER Course The patient presents with us painful scalp lesion and adenopathy of her neck. Differential includes cellulitis, folliculitis and adenopathy. There is no evidence of meningitis at this time. The patient is nontoxic. No laboratory or imaging studies indicated. The patient has been taking Augmentin which would not be effective against MRSA. Long discussion with patient regarding possible incision and drainage at this time versus following with changing antibiotics and increasing analgesia. Decision was made to follow clinically and not to incise and drain the lesion at this moment. Discussed treatment plan with patient. Advised patient to return in 2 days if antibiotics not effective at curing this problem. Also advised patient to use warm soaks. Patient stable for outpatient observation and treatment. Last Vital Signs Date Time Temp Pulse Resp B/P (MAP) Pulse Ox O2 Delivery O2 Flow Rate FiO2 08/11/20 21:45 97.5 18 132/73 100 Room Air 08/11/20 20:39 105 Status: improved Disposition: HOME, SELF-CARE Condition: Improved Scripts Hydrocodone Bit/Acetaminophen 5-325* (NORCO 5-325 TABLET*) 1 Each Tablet 1 TAB ORAL Q6H PRN for FOR PAIN, #8 TAB 0 Refills Prov: Adrian Voss MD 08/11/20 Bacitracin (Bacitracin) 28.4 Gm Oint...g. 1 APPLIC TOPIC BID, #20 GM Prov: Adrian Voss MD 08/11/20 Trimethoprim/Sulfamethoxazole 160/800* (BACTRIM DS TABLET*) 1 Each Tablet 1 TAB ORAL Q12H, #14 TAB 0 Refills Prov: Adrian Voss MD 08/11/20 Referrals: [facility],REFERRING (PCP) Adrian Voss MD Aug 11, 2020 21:21
[2020-08-11] MEDS ORDERED: NORCO 5-325 TA1 EAC1 ORAL (21:28)
[2020-08-11] MEDS ORDERED: BACTRIM DS TAB1 EAC1 ORAL (21:28)
[2020-08-11] MEDS ORDERED: BACITRACIN15 GM TOPIC (21:28)
[2020-08-11] MEDS ORDERED: Bacitracin Oint UD TOPIC ONE (21:30)
[2020-08-11] MEDS ORDERED: Bactrim-DS 1 tab ORAL ONE (21:30)
[2020-08-11 21:45] VITALS: BP 132/73
--- NOTE | 2020-08-11 21:45 | NUR ---
ER DISCHARGE NOTE: Patient is cleared to be discharged per ERMD, pt is aox4, on room air, with stable vital signs. pt was given dc and prescription instructions, pt was able to verbalize understanding, pt id band removed without complications. pt is able to ambulate with steady gait. pt took all belongings.
== END 2020-08-11 21:50 | disposition home or self-care (01) ==
LOC: EMR 21:10
DX: L73.9 Follicular disorder, unspecified (principal); R59.0 Localized enlarged lymph nodes; F19.90 Other psychoactive substance use, unspecified, uncomplicated; Z72.89 Other problems related to lifestyle
CPT/HCPCS: 99282

== ENCOUNTER 2020-09-03 07:48 | Emergency (ER) | payer MEDICAID ==
[~2020-09-03] VITALS: Ht 165.1 cm; Wt 74.8 kg
[~2020-09-03 07:48] MED LIST changes: +BACITRACIN15 GM TOPIC; +BACTRIM DS TAB1 EAC1 ORAL; +NORCO 5-325 TA1 EAC1 ORAL
--- NOTE | 2020-09-03 08:10 | NUR ---
ED Nurse Note: Pt walked in form home. Axox4. Walks with a steady gait. Vitals are stable on RA as documeted. Pt co of sinus pain and stuffy nose since this morning aroud 3am. She states that she normaly has issues with her sinuses that she uses a spray but today it felt different.
[2020-09-03 08:17] VITALS: BP 119/79
[2020-09-03] MEDS ORDERED: Pseudoephedrine 30mg tab ORAL ONE (08:45)
--- NOTE | 2020-09-03 08:54 | Emergency Room Report ---
History of Present Illness General Chief Complaint: Upper Respiratory Illness Source: Patient Present Illness HPI The patient has been ill since Monday. She has had sinus pain. In addition there has been muscle aches. She feels extremely fatigued with generalized weakness. She has a nonproductive cough. She has felt feverish but has not documented a temperature. There is no sore throat. She denies nausea, vomiting and diarrhea. There is no dysuria. The patient is uncertain whether she has been exposed to Covid positive contacts at her job. No chest pain, palpitations, dysuria, abdominal pain, shortness of breath, joint pain, rashes, depression, anxiety, visual changes, dizziness, headache. Allergies: Coded Allergies: No Known Allergies (Unverified , 06/29/15) COVID-19 Screening Contact w/high risk pt: No Experienced COVID-19 symptoms?: No COVID-19 Testing performed PROCUREMENT COORDINATOR: No Patient History Past Medical History: see triage record Past Surgical History: other - and tubal Social History: Reports: alcohol use, drug use - THC; Denies: smoking Social History Narrative Works at [employer] - has 11 month old at home and father with cancer Now: No Reviewed Nursing Documentation: PMH: Agreed; PSxH: Agreed Nursing Documentation-PMH Past Medical History: No Stated History Hx Cardiac Problems: No Hx Hypertension: No Hx Pacemaker: No Hx Asthma: No Hx COPD: No Hx Diabetes: No Hx Neurological Problems: No Hx Cerebrovascular Accident: No Hx Seizures: No Review of Systems All Other Systems: negative except mentioned in HPI Physical Exam Vital Signs Date Time Temp Pulse Resp B/P (MAP) Pulse Ox O2 Delivery O2 Flow Rate FiO2 09/03/20 08:13 98.1 100 16 119/79 (92) 99 Room Air Sp02 EP Interpretation: reviewed, normal General Appearance: well appearing, no apparent distress, GCS 15 Head: normocephalic Eyes: bilateral eye normal inspection, bilateral eye PERRL, bilateral eye EOMI ENT: normal pharynx, moist mucus membranes Neck: supple Respiratory: chest non-tender, lungs clear, normal breath sounds Cardiovascular #1: regular rate, rhythm Cardiovascular #2: 2+ radial (R) Gastrointestinal: normal inspection Musculoskeletal: back normal, normal range of motion, gait/station normal Neurologic: alert, oriented x3, grossly normal Psychiatric: mood/affect normal Skin: no rash, warm/dry Medical Decision Making Diagnostic Impression: Primary Impression: Upper respiratory infection Qualified Codes: J06.9 - Acute upper respiratory infection, unspecified Additional Impression: Suspected COVID-19 virus infection ER Course Patient presents with 2 days of upper respiratory symptoms. Differential includes COVID-19, other bacterial bronchitis and sinusitis, other viral upper respiratory and sinus infection amongst others. Due to her exposure at her job there is a possibility that this is Covid. Also based on her symptom complex Covid is highly suspected. This patient was evaluated in the context of the global COVID-19 pandemic, which necessitated consideration that the patient might be at risk for infection with the [id number] virus that causes COVID-19. Institutional protocols and algorithms that pertain to the evaluation of patients at risk for COVID-19 and the state of rapid change based on information released by multiple regulatory bodies including the CDC and federal and state organizations. These policies and algorithms were followed during the patient's care in the ED. Discussed treatment plan with patient. Discussed the need for outpatient follow-up. Suggested to Covid testing. Patient stable for outpatient observation and treatment. Last Vital Signs Date Time Temp Pulse Resp B/P (MAP) Pulse Ox O2 Delivery O2 Flow Rate FiO2 09/03/20 09:17 98.2 09/03/20 09:16 100 18 112/80 98 Room Air Status: improved Disposition: HOME, SELF-CARE Condition: Improved Scripts Guaifenesin/Codeine Phos* (ROBITUSSIN AC*) 118 Ml Liquid 5 ML ORAL Q6HR PRN for For Cough, #60 ML 0 Refills Prov: Adrian Voss MD 09/03/20 Azithromycin* (ZITHROMAX*) 250 Mg Tablet 250 MG ORAL as directed, #6 TAB 0 Refills Take two tables once daily for 1 day, then one tablet once daily for 4 days. Prov: Adrian Voss MD 09/03/20 Ibuprofen* (MOTRIN*) 600 Mg Tablet 600 MG ORAL Q6H PRN for FOR PAIN, #20 TAB 0 Refills Prov: Adrian Voss MD 09/03/20 Referrals: [facility],REFERRING (PCP) Adrian Voss MD Sep 03, 2020 08:54
[2020-09-03] MEDS ORDERED: ZITHROMAX250 MG ORAL (09:02)
[2020-09-03] MEDS ORDERED: IBUPROFEN600 M1 ORAL (09:02)
[2020-09-03] MEDS ORDERED: GUAIFENESIN-CO118 M1 ORAL (09:02)
[2020-09-03 09:16] VITALS: BP 112/80
--- NOTE | 2020-09-03 09:18 | NUR ---
ER DISCHARGE NOTE: Patient is cleared to be discharged per ERMD, pt is aox4, on room air, with stable vital signs. pt was given dc and prescription instructions, pt was able to verbalize understanding, pt id band removed. pt is able to ambulate with steady gait. pt took all belongings.
== END 2020-09-03 09:15 | disposition home or self-care (01) ==
LOC: EMR 08:30
DX: J06.9 Acute upper respiratory infection, unspecified (principal); M79.10 Myalgia, unspecified site; R53.83 Other fatigue; R53.1 Weakness; Z20.828 Contact with and (suspected) exposure to other viral communicable diseases; F12.90 Cannabis use, unspecified, uncomplicated; F10.10 Alcohol abuse, uncomplicated
CPT/HCPCS: 99282

== ENCOUNTER 2020-11-01 14:16 | Emergency (ER) | payer MEDICAID ==
[~2020-11-01] VITALS: Ht 165.1 cm; Wt 72.6 kg
[~2020-11-01 14:16] MED LIST changes: +GUAIFENESIN-CO118 M1 ORAL; +ZITHROMAX250 MG ORAL
[2020-11-01 14:23] VITALS: BP 101/71
[2020-11-01 14:25] VITALS: BP 113/74
--- NOTE | 2020-11-01 14:25 | NUR ---
ED Nurse Note: Pt walked into ED for mid facial rash for 3 days. Pt has no pain or numbness. She is alert and orientedx4, ambulatory. She has been seen by ERMD. Pt got rashes from work.
[2020-11-01] MEDS ORDERED: AUGMENTIN 875-1 EAC1 ORAL (14:41)
[2020-11-01] MEDS ORDERED: MUPIROCIN22 GM TOPIC (14:41)
--- NOTE | 2020-11-01 14:51 | NUR ---
ER DISCHARGE NOTE: Patient is cleared to be discharged per ERMD, pt is aox4, on room air, with stable vital signs. pt was given dc and prescription instructions, pt was able to verbalize understanding. pt is able to ambulate with steady gait. pt took all belongings.
--- NOTE | 2020-11-01 17:08 | Emergency Room Report ---
History of Present Illness General Chief Complaint: Allergies Source: Patient Present Illness HPI 40-year-old female presents for evaluation. Notes there is a rash around her face for the last week. Denies pain. States it is itchy. Started because of wearing a mask at her work. States she does have sensitive skin. States she does often sweat underneath the mask. Denies any known food or drug allergies. States she does apply alcohol to her face. No other aggravating relieving factors. Denies any other associated symptoms Allergies: Coded Allergies: No Known Allergies (Unverified , 06/29/15) COVID-19 Screening Contact w/high risk pt: No Experienced COVID-19 symptoms?: No COVID-19 Testing performed CLOTH NEUTRALIZER: No Patient History Past Medical History: none Past Surgical History: none Pertinent Family History: none Social History: Denies: smoking, alcohol use, drug use Last Menstrual Period: 11/01 Now: No Immunizations: UTD Reviewed Nursing Documentation: PMH: Agreed; PSxH: Agreed Nursing Documentation-PMH Past Medical History: No History, Except For Hx Cardiac Problems: No Hx Hypertension: No Hx Pacemaker: No Hx Asthma: No Hx COPD: No Hx Diabetes: No Hx Neurological Problems: No Hx Cerebrovascular Accident: No Hx Seizures: No Review of Systems All Other Systems: negative except mentioned in HPI Physical Exam Vital Signs Date Time Temp Pulse Resp B/P (MAP) Pulse Ox O2 Delivery O2 Flow Rate FiO2 11/01/20 14:23 97.9 94 18 101/71 (81) 95 Room Air Sp02 EP Interpretation: reviewed, normal General Appearance: no apparent distress, alert, GCS 15, non-toxic Head: normocephalic, atraumatic Eyes: bilateral eye normal inspection, bilateral eye PERRL ENT: hearing grossly normal, normal pharynx, no angioedema, normal voice Neck: full range of motion, supple/symm/no masses Respiratory: chest non-tender, lungs clear, normal breath sounds, speaking full sentences Cardiovascular #1: regular rate, rhythm, no edema Cardiovascular #2: 2+ carotid (R), 2+ carotid (L), 2+ radial (R), 2+ radial (L), 2+ dorsalis pedis (R), 2+ dorsalis pedis (L) Gastrointestinal: normal bowel sounds, non tender, soft, non-distended, no guarding, no rebound Rectal: deferred Genitourinary: normal inspection, no CVA tenderness Musculoskeletal: back normal, normal range of motion, gait/station normal, non- tender Neurologic: alert, motor strength/tone normal, oriented x3, sensory intact, responsive, speech normal Psychiatric: judgement/insight normal, memory normal, mood/affect normal, no suicidal/homicidal ideation Reflexes: 3+ bicep (R), 3+ bicep (L), 3+ tricep (R), 3+ tricep (L), 3+ knee (R), 3+ knee (L) Skin: rash - Papular rash localized in the malar region. Crusting noted. Erythema and induration noted Lymphatic: no adenopathy Medical Decision Making Diagnostic Impression: Primary Impression: Cellulitis of face ER Course Hospital Course 40-year-old female presents with rash to face Differential diagnoses include: Cellulitis, dermatitis, insect bite, abscess Clinical course Patient placed on stretcher. After initial history, physical exam reveals a male in no acute distress. In the malar region there it appears to be a papular erythematous rash with crusting. Indurated. It appears infected. Could have started with the irritated skin due to the mask wearing. Will prescribe antibiotics, topical antibiotics. Recommend intermittent cleansing of the skin with soap and water in between mask use. Safe for discharge close outpatient follow-up Diagnosis - cellulitis of face stable and discharged to home with prescription for augmentin, mupirocin. Instructed to followup with PMD. Instructed return to ED if symptoms recur or worsen Last Vital Signs Date Time Temp Pulse Resp B/P (MAP) Pulse Ox O2 Delivery O2 Flow Rate FiO2 11/01/20 14:25 98.0 76 16 113/74 98 Room Air Status: improved Disposition: HOME, SELF-CARE Condition: Stable Scripts Mupirocin* (MUPIROCIN*) 22 Gm Oint...g. 1 APPLIC TOPIC THREE TIMES A DAY, #22 GM Prov: Diogo Hollis MD 11/01/20 Amoxicillin/Potassium Clav 875-125* (AUGMENTIN 875-125 TABLET*) 1 Each Tablet 1 TAB ORAL TWICE A DAY, #14 TAB Prov: Diogo Hollis MD 11/01/20 [facility],REFERRING (PCP) Departure Forms: Return to Work Return to Work Date: Nov 04, 2020 Work Restrictions: None Patient Instructions: Cellulitis, [id number] Diogo Hollis MD Nov 01, 2020 17:08
== END 2020-11-01 14:51 | disposition home or self-care (01) ==
LOC: EMR 14:45
DX: L03.211 Cellulitis of face (principal)
CPT/HCPCS: 99282